=== PATIENT | female | born 1960 | race Native Hawaiian/Other Pacific Islander ===

== ENCOUNTER 2018-07-08 17:14 | Emergency (ER) | payer OTHER ==
[~2018-07-08] VITALS: Ht 162.6 cm; Wt 47.7 kg
[~2018-07-08 17:14] MED LIST: ALPR0.5T24 PO; ASPIRIN 8181 MG PO; HYDR5TAB9 PO
[2018-07-08 17:26] VITALS: TEMP 98.2
[2018-07-08] MEDS ORDERED: SEROQUEL50 MG PO (17:38)
[2018-07-08 18:42] LABS: PLATELET COUNT 334 K/uL (152-353)
[2018-07-08 18:49] LABS: POTASSIUM 3.6 mmol/L (3.6-5.2)
[2018-07-08 19:45] VITALS: BP 118/54
== END 2018-07-08 19:53 | disposition home or self-care (01) ==
LOC: ED 17:14
DX: J06.9 Acute upper respiratory infection, unspecified (principal)
CPT/HCPCS: 36415; 80053; 81000; 85027; 87502; 87651; 96360; 99284; J1885; J7120

== ENCOUNTER 2018-07-15 13:17 | Emergency (ER) | payer OTHER ==
[~2018-07-15] VITALS: Ht 162.6 cm; Wt 47.6 kg
[~2018-07-15 13:17] MED LIST changes: +SEROQUEL50 MG PO
[2018-07-15 16:05] VITALS: BP 150/94; TEMP 98.8
== END 2018-07-15 16:05 | disposition home or self-care (01) ==
LOC: ED 13:17
DX: K52.89 Other specified noninfective gastroenteritis and colitis (principal); J06.9 Acute upper respiratory infection, unspecified
CPT/HCPCS: 87502; 96361; 96374; 99284; J1885; J2405